=== PATIENT | male | born 1945 | race Caucasian/White ===

== ENCOUNTER → 2018-03-16 19:00 | Outpatient (REF) | payer MEDICARE, OTHER, SELFPAY | LOC: LAB 19:00 | PROVIDERS: Family Provider Physician Assistant; PCP Physician Assistant; Visit Provider Dermatology | DX: L08.9 Local infection of the skin and subcutaneous tissue, unspecified (principal) | CPT/HCPCS: 87070; 87075; 87077; 87147; 87186; 87205 ==

== ENCOUNTER → 2019-05-29 06:44 | Outpatient (CLI) | payer MEDICARE, OTHER, SELFPAY ==
--- NOTE | 2019-05-29 | DI.RAD.S_ITS ---
PROCEDURE: XR WRIST LT MIN 3V INDICATIONS: LEFT WRIST PAIN TECHNIQUE: 4 views of the wrist were acquired. COMPARISON: None. FINDINGS: Bones: No fractures or dislocations. No suspicious bony lesions. 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 Osteopenia. Scaphoid view: Unremarkable. Soft tissues: No suspicious soft tissue calcifications. IMPRESSION: No fracture or dislocation. Osteopenia. 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 Dictated by: Kalen Gerber M.D. on 05/29/2019 at 10:59 Approved by: Kalen Gerber M.D. on 05/29/2019 at 11:02
--- NOTE | 2019-05-29 | DI.ECHO.S_ITS ---
[facility]---------+ [facility] +---------+ : : [address] : : : : [id number] : : : : Phone: [phone]+ Echocardiogram Report + + :Name: EFREN SUMMERS Study Date: 05/29/2019 Height: 69 in : :[facility] Weight: 156 lb : : Gender: Male BSA: 1.9 m2 : :: 1945 Age: 73 yrs BP: 106/62 mmHg: :Reason For Study: Atrial fibrillation : :Ordering Physician: : :Nasra Noriega Performed By: Yenny Amos : :Referring: NASRA NORIEGA : + + Interpretation Summary The left ventricle is normal in size. The ejection fraction is estimated to be 55-60%. Cannot exclude subtle hypokinesis along the distal anterior and distal anterolateral segments. Consider a nuclear stress test to screen for myocardial ischemia. Diastolic parameters suggest probable normal left ventricular diastolic function and normal filling pressures. The right ventricle is normal in size and function. The right ventricular systolic pressure is estimated to be at least 21 mmHg based on an estimated right atrial pressure of 3 mm Hg. The left atrium is mildly dilated. Right atrial size is normal. There is mild mitral regurgitation. There is no other significant valvular heart disease. The ascending aorta is mildly enlarged. Procedure: A two-dimensional transthoracic echocardiogram with color flow and Doppler was performed. The study quality was technically adequate. There is no prior echocardiogram noted for this patient. The patient was in sinus bradycardia with heart rates between 53-61 bpm during the exam. Left Ventricle: The left ventricle is normal in size. There is normal left ventricular wall thickness. There is no ventricular septal defect visualized. The ejection fraction is estimated to be 55-60%. Cannot exclude subtle hypokinesis along the distal anterior and distal anterolateral segments. Consider a nuclear stress test to screen for myocardial ischemia. Diastolic parameters suggest probable normal left ventricular diastolic function and normal filling pressures. Right Ventricle: The right ventricle is normal in size and function. Atria: The left atrium is mildly dilated. Right atrial size is normal. There is no Doppler evidence for an interatrial shunt. Mitral Valve: The mitral valve is normal in structure and function. There is mild mitral regurgitation. Aortic Valve: The aortic valve is normal in structure and function. No aortic regurgitation is present. Tricuspid Valve: The tricuspid valve is normal in structure and function. There is trace tricuspid regurgitation. The right ventricular systolic pressure is estimated to be at least 21 mmHg based on an estimated right atrial pressure of 3 mm Hg. Pulmonic Valve: The pulmonic valve is normal in structure and function. There is a trace or physiologic amount of pulmonic regurgitation. There is no other significant valvular heart disease. Great Vessels: The aortic root is normal size. The ascending aorta is mildly enlarged. The aortic arch is normal in size. The pulmonary artery is normal size. The IVC is of normal diameter and collapses greater than 50% with a sniff. This suggests a low right atrial pressure of 3 mm Hg. Pericardium/ Pleura There is no pericardial effusion. MMode/2D Measurements & Calculations LVIDd: 4.4 cm LVOT diam: 2.1 cm LVIDs: 2.7 cm Ao root diam: 3.5 cm FS: 38.8 % Aortic Jxn: 2.9 cm EPSS: 0.35 cm asc Aorta Diam: 3.5 cm IVSd: 0.71 cm Ao Arch Diam (Prox Trans): 2.8 cm LVPWd: 0.86 cm LV villegas. diameter/BSA (cm/m^2): 2.4 LV sys. diameter/BSA (cm/m^2): 1.5 LA A2 area: 21.6 cm2 RA long axis: 5.2 cm LA A4 area: 20.8 cm2 RA area: 15.6 cm2 LA length (vol): 5.5 cm RA vol: 39.9 ml LA vol: 69.6 ml RA : 21.4 ml/m2 LA vol index: 37.4 ml/m2 IVC diam: 2.0 cm RVD1 (basal): 3.2 cm RVD2 (mid): 2.1 cm TAPSE: 2.9 cm Doppler Measurements & Calculations Ao V2 max: 120.5 cm/sec LVOT Max Demetrio: 96.8 cm/sec Ao V2 mean: 77.1 cm/sec LV V1 max P.7 mmHg Ao max P.8 mmHg LV V1 VTI: 20.6 cm Ao mean P.8 mmHg SHARONA(I,D): 2.7 cm2 Ao V2 VTI: 26.1 cm SHARONA(V,D): 2.7 cm2 sev ratio: 0.79 SHARONA indexed to BSA (cm^2/m^2): 1.4 MV E max demetrio: 76.8 cm/sec TR max demetrio: 212.7 cm/sec MV A max demetrio: 80.5 cm/sec TR max P.1 mmHg MV E/A: 0.95 PA V2 max: 68.9 cm/sec Med Peak E' Demetrio: 7.3 cm/sec PA V2 mean: 45.3 cm/sec E/E' med: 10.6 PA mean P.96 mmHg Lat Peak E' Demetrio: 8.9 cm/sec PA Accel Time: 0.16 sec E/E' lat: 8.6 E/e' average: 9.6 MV dec time: 0.16 sec MV P1/2t: 46.5 msec MV P1/2t max demetrio: 76.8 cm/sec SV(LVOT): 69.8 ml MVA(P1/2t): 4.7 cm2 Reading Physician:03:22 PM
== END ==
PROVIDERS: PCP Internal Medicine; Visit Provider Internal Medicine
DX: I34.0 Nonrheumatic mitral (valve) insufficiency (principal); I48.91 Unspecified atrial fibrillation; I77.89 Other specified disorders of arteries and arterioles; M25.532 Pain in left wrist; M85.832 Other specified disorders of bone density and structure, left forearm
CPT/HCPCS: 73110; 93306

== ENCOUNTER → 2019-06-09 12:32 | Outpatient (CLI) | payer MEDICARE, OTHER, SELFPAY ==
--- NOTE | 2019-06-09 | DI.MRI.S_ITS ---
PROCEDURE: MR WRIST LT WO CON INDICATIONS: Pain in left wrist TECHNIQUE: Noncontrast coronal proton density fast spin echo and T2 fast spin echo with fat saturation; coronal 3-D gradient echo, axial T1 spin echo and T2 fast spin echo with fat saturation, sagittal T1 spin echo through the wrist. COMPARISON: [facility], CR, XR WRIST LT MIN 3V, 05/29/2019, 8:35. FINDINGS: Image quality: Excellent. Bones and cartilage: The carpal bones are normally aligned. Subtle edema involving proximal lunate with geographic area of sclerosis in proximal lunate. Subtle subcortical fracture versus focal area of osteonecrosis is suspected. Small cystic area versus erosion involving proximal scaphoid, lunate and triquetrum is seen, subtle erosion secondary to inflammatory arthropathy cannot be excluded. No displaced fracture or dislocation. Osteoarthritic changes are noted throughout wrist joints more prominent at first CMC joint. Carpal ligaments: There is suggestion of sprain/partial thickness tear involving possible component of scapholunate ligament. No full-thickness scapholunate ligament rupture lunotriquetral ligament is intact. In the absence of intra-articular contrast, the extrinsic carpal ligaments are not well identified. On sagittal images, the pisohamate ligament appears intact. Triangular fibrocartilage complex: There is suggestion of granular fibrocartilage tear near its radial and ulnar insertions. The adjacent meniscal homolog appears normal in the absence of intra-articular contrast. The extensor carpi ulnaris tendon is thickened with moderate fluid distention of the tendon sheath at the level of radial head and internal debris within tendon sheath adjacent to the tendon concerning for significant tenosynovitis. Tendons and soft tissues: Diffuse soft tissue swelling and edema surround the wrist is seen particularly over dorsal aspect. The carpal tunnel structures appear normal, including the median nerve. The ulnar nerve appears normal within Guyon's canal. Rest of the extensor tendon compartments demonstrate normal morphology, without pathologic tendon sheath fluid. No soft tissue ganglion cysts. IMPRESSION: 1. Subtle edema involving proximal lunate with geographic area of sclerosis. Findings may indicate a subtle subcortical fracture versus avascular necrosis in this area. 2. Osteoarthritic changes throughout wrist joints with cystic areas scattered in carpal bones. Erosive changes secondary to inflammatory arthropathy cannot be excluded. 3. Diffuse soft tissue swelling and edema surrounding wrist. Moderate tenosynovitis involving extensor carpi ulnaris tendon at the level of ulnar styloid with erosion of ulna styloid. 4. Suggestion of sprain/partial thickness tear involving scapholunate ligament. The lunotriquetral ligament is intact. 5. Suggestion of triangular fibrocartilage tear near its radial and ulnar insertions. Dictated by: Gerardo Harper M.D. on 06/11/2019 at 8:42 Approved by: Gerardo Harper M.D. on 06/11/2019 at 9:29
== END ==
PROVIDERS: PCP Internal Medicine; Visit Provider Internal Medicine
DX: M25.532 Pain in left wrist (principal); M65.832 Other synovitis and tenosynovitis, left forearm; M25.432 Effusion, left wrist
CPT/HCPCS: 73221

== ENCOUNTER → 2019-07-05 14:34 | Outpatient (CLI) | payer MEDICARE, OTHER, SELFPAY ==
--- NOTE | 2019-07-05 | DI.NM.S_ITS ---
PROCEDURE: NM SHARI PERF SPECT REST & STR Rest and exercise myocardial perfusion SPECT with gated imaging and ejection fraction RADIOPHARMACEUTICAL: 26.6 mCi Tc-99m sestamibi IV at rest and 25.9 mCi Tc-99m sestamibi IV at peak exercise. A two day-protocol was performed. INDICATIONS: UNSPECIFIED ATRIAL FIB. TECHNIQUE: Radiopharmaceutical was injected at peak stress test, and also at rest. SPECT images were obtained. SPECT myocardial perfusion images were displayed in short axis, horizontal long axis, and vertical long axis views. Gated images were reviewed using [facility]. COMPARISON: None. CARDIAC STRESS: A standard Hussein treadmill exercise tolerance test was performed by the patient under the supervision of an attending staff. The patient exercised for 8 minutes and 28 seconds reaching 10.1 METs; functional aerobic impairment (MICAELA) is -34%. Hemodynamic data: There is normal blood pressure and heart rate response to exercise stress. Patient achieved 105% of maximum predicted heart rate at peak exercise. Symptoms: Patient denied chest pain during exercise. EKG: No diagnostic EKG changes of ischemia; occasional PACs and PVCs present. FINDINGS: Raw data: There is good myocardial labeling by radiotracer. No significant motion artifacts. Ezud-yz-guofl ratio is 0.35 (normal is less than 0.38 for sestamibi tracer, and less than 0.50 for thallium tracer). Left ventricle function: Gated images demonstrate normal left ventricle wall thickening. No segmental wall motion abnormality. No transient ischemic dilation; TID is 0.94 (normal less than 1.3). The left ventricle resting end-diastolic volume is 98 mL. Left ventricle stress ejection fraction is 71%; normal values are above 45%. Myocardial perfusion: There is normal distribution of activity in the left and right ventricular myocardium. No fixed or reversible perfusion defects. IMPRESSION: Low risk, normal treadmill nuclear stress test. 1) No perfusion evidence of ischemia or infarction. 2) Normal left ventricular size, wall motion, and systolic function (EF post stress 71%). 3) No ECG evidence of ischemia. 4) No angina during the study. 5) Good exercise capacity (10.1 METs, MICAELA -34%). Target heart rate achieved. Appropriate BP response to exercise. 6) No prior nuclear stress test available for comparison. Dictated by: Jovany Flowers MD on 07/06/2019 at 16:45 Approved by: Jovany Flowers MD on 07/06/2019 at 16:48
== END ==
PROVIDERS: PCP Internal Medicine; Visit Provider Internal Medicine
DX: I48.91 Unspecified atrial fibrillation (principal)
CPT/HCPCS: 78452; 93016; 93017; 93018; A9502

== ENCOUNTER → 2020-05-26 19:10 | Outpatient (ROUT) | payer MEDICARE, OTHER, SELFPAY ==
[2020-05-26 20:02] LABS: Add Manual Diff / Slide Review NO; Basophils Absolute Auto 0 /uL (0-100); Basophils Percent Auto 0.7 % (0-2); Eosinophils Absolute Auto 100 /uL (0-450); Eosinophils Percent Auto 3.2 % (2-4); Hematocrit 39.6 % (41-53); Hemoglobin 13.4 g/dL (13.5-17.5); Lymphocytes Absolute Auto 1300 /uL (1100-4500); Lymphocytes Percent Auto 32.7 % (25-40); Mean Corpuscular HGB Conc 33.8 % (30-36); Mean Corpuscular Hemoglobin 32.5 PG (26-34); Mean Corpuscular Volume 96.3 fL (80-100); Monocytes Absolute Auto 300 /uL (0-900); Monocytes Percent Auto 7.1 % (3-14); Neutrophils Absolute Auto 2300 /uL (1500-7000); Neutrophils Percent Auto 56.3 % (50-75); Platelet Count 254 X10^3/uL (150-400); Red Blood Cell Count 4.12 X10^6/uL (4.5-5.9); Red Cell Distribution Width 13.2 % (11.6-14.8)
[2020-05-26 20:14] LABS: Aspartate Aminotransferase 29 IU/L (17-59); BUN Creatinine Ratio 24.4 (6-22); Blood Urea Nitrogen 21 mg/dL (9-20); Calcium 9.3 mg/dL (8.4-10.2); Carbon Dioxide 29 mmol/L (22-32); Chloride 104 mmol/L (98-107); Cholesterol 195 mg/dL (140-199); Estimated Glomerular Filt Rate > 60.0 mL/min (>60); Glucose 94 mg/dL (80-110); HDL Cholesterol 75 mg/dL (40-60); HEMOLYSIS < 15 (0-50); LDL Cholesterol Calculated 94 mg/dL (<100); Potassium 4.4 mmol/L (3.4-5.1); Sodium 137 mmol/L (137-145); Triglycerides 130 mg/dL (35-150)
[2020-05-26 20:43] LABS: Prostate Specific Antigen 2.04 ng/mL (0.10-4.00)
== END ==
PROVIDERS: PCP Internal Medicine; Visit Provider Internal Medicine
DX: I48.0 Paroxysmal atrial fibrillation (principal); E78.2 Mixed hyperlipidemia
CPT/HCPCS: 80048; 80061; 84153; 84450; 85025

== ENCOUNTER 2022-11-01 09:15 | Day surgery (SDC) | payer MEDICARE, OTHER, SELFPAY ==
[2022-11-01] VITALS (7 sets, daily range): BP systolic 82–156; BP diastolic 41–101; PULSE 53–63; RESP 12–18; TEMP 36.2–36.4; O2SAT 95–98; BMI 27.4
--- NOTE | 2022-11-01 | PATH_ITS ---
[facility] Accession Number: [id number] No. of containers..05 Tissue . 01 Material submitted: . PART A: gastrointestinal site - GASTRIC BODY POLYP PART B: gastrointestinal site - GASTRIC FUNDUS POLYP PART C: esophagus - MID ESOPHAGUS BIOPSY PART D: colon - CECAL POLYP PART E: colon - ASCENDING COLON POLYP . 01 Diagnosis: A. Stomach, Body Polyp, Biopsy: Body-type mucosa with a few dilated glands, consistent with fundic gland polyp. No evidence of Helicobacter on H/E stain. Negative for intestinal metaplasia. Negative for dysplasia and malignancy. . B. Stomach, Fundus Polyp, Biopsy: Benign gastric xanthoma. No evidence of Helicobacter on H/E stain. Negative for intestinal metaplasia. Negative for dysplasia and malignancy. . C. Mid Esophagus, Biopsy: Squamous epithelium with no diagnostic abnormality. Intraepithelial eosinophils are not increased. Negative for dysplasia and malignancy. . D. Cecum, Polyp, Biopsy: Tubular adenoma. . E. Ascending Colon, Polyp, Biopsy: Serrated lesion, favor sessile serrated adenoma. [facility] 11/04/2022 1722 Local . 01 Electronically signed: . Kymberly Adams MD, Pathologist NPI- [id number] . 01 Gross description: . Part A: GASTRIC BODY POLYP: Received in formalin are 3 fragment(s) of diaz, soft tissue measuring 0.1 x 0.1 x 0.1 cm to 0.2 x 0.2 x 0.2 cm submitted entirely in 1 cassette(s) Part B: GASTRIC FUNDUS POLYP: Received in formalin is 1 fragment(s) of diaz, soft tissue measuring 0.3 x 0.2 x 0.2 cm submitted entirely in 1 cassette(s) Part C: MID ESOPHAGUS BIOPSY: Received in formalin are 3 fragment(s) of diaz, soft tissue measuring 0.1 x 0.1 x 0.1 cm to 0.2 x 0.2 x 0.1 cm submitted entirely in 1 cassette(s) Part D: CECAL POLYP: Received in formalin is 1 fragment(s) of diaz, soft tissue measuring 0.6 x 0.4 x 0.4 cm submitted entirely in 1 cassette(s) Part E: ASCENDING COLON POLYP: Received in formalin is 1 fragment(s) of diaz, soft tissue measuring 0.4 x 0.4 x 0.2 cm submitted entirely in 1 cassette(s) /[facility] 11/02/2022 1927 Local . 01 Microscopic: . B. Immunohistochemical stains were performed to characterize cells of interest. All control stains showed appropriate reactivity. . RESULTS: CD68: Positive in the cells of interest. MARBELLA: Negative in the cells of interest. . INTERPRETATION: The cells of interest in the lamina propria express CD68 and do not express MARBELLA, consistent with benign histiocytes/xanthoma cells. . * This test was developed and its performance characteristics determined by [facility]. It has not been cleared or approved by the U.S. Food and Drug Administration. The FDA has determined that such clearance or approval is not necessary. This test is used for clinical purposes. It should not be regarded as investigational or for research. . 01 Pathologist provided ICD-10: D12.0, D12.2, R13.10, K31.7 . 01 CPT . 056712, 664451, 014719, 171054, 811576, P48930, E01552 Specimen Comment: A courtesy copy of this report has been sent to [phone] Performed at: 01 [facility] Cytology [address] [place] [address], [place], [place] [id number] MD Manav Pulido MD Phone: [phone]
--- NOTE | 2022-11-01 10:26 | P.HP_ITS ---
History of Present Illness History of Present Illness Date Patient Seen: 11/01/22 Time Patient Seen: 10:26 Chief complaint: EGD/Colonoscopy Narrative: I reviewed my recent office note. No significant changes. [facility] Medical History BPH w urinary obs/LUTS Chicken pox (~1951) Chronic anticoagulation Dysphagia Erectile dysfunction Foot pain (~2011) Hearing loss History of colonic polyps Mixed hyperlipidemia Obstructive sleep apnea Paroxysmal atrial fibrillation (~2009) Tinnitus (~1979) Surgical History History of carpal tunnel release Family History Father Stroke Mother Cancer Grandmother Cancer Social History Smoking Status: Never smoker Meds Home Medications and Allergies Home Medications Medication Instructions Recorded Confirmed Type cholecalciferol (vitamin D3) 125 125 mcg PO DAILY 09/17/22 09/17/22 History mcg (5,000 unit) capsule tamsulosin 0.4 mg capsule (Flomax) 0.4 mg PO BEDTIME 09/17/22 09/17/22 History warfarin 10 mg tablet 5 mg PO DAILY 09/17/22 09/17/22 History Allergies Allergy/AdvReac Type Severity Reaction Status Date / Time INGREDIENT: NDA - NO KNOWN Allergy Unknown Uncoded 09/17/22 14:06 DRUG ALLERGIES Review of Systems Review of Systems ROS: Yes All systems reviewed with the patient and are negative except as otherwise documented Exam Const General: cooperative HENMT Head: normal to inspection Eyes General: appearance normal, both eyes and all related structures Neck Neck: normal visual inspection Chest Chest: normal inspection of the chest Resp Effort & Inspection: normal respiratory effort Cardio Rate: regular rate GI Inspection: normal to inspection Skin General: no rashes or lesions noted Neuro General: patient alert and patient awake Extrem General: normal to inspection and no pedal edema Psych Appearance: grossly normal Assessment & Plan Assessment & Plan narrative: 77-year-old male with dysphagia. He is a personal history of colon polyps. EGD and colonoscopy are pursued today.
--- NOTE | 2022-11-01 10:28 | PM.PREOP ---
Pre-operative Note Interval Note History & Physical reviewed/Exam performed by Physician: Yes Changes to H&P: No ASA Class (for procedural sedation): II
[2022-11-01] MEDS: LACTATED RINGERS 1,000 ML 100 ML IV (10:52)
--- NOTE | 2022-11-01 11:50 | PM.OP.EC ---
Operative Date/Time/Diagnoses Date of procedure: 11/01/22 Time of procedure: 11:51 Pre-op diagnosis: Dysphagia and personal history of colon polyps Post-op diagnosis: same Procedure & Clinicians Study performed: EGD with biopsies and colonoscopy with hot and cold snare polypectomy Same procedure as scheduled: Yes Indications: Dysphagia and personal history of colon polyps Surgeon: Herb Patel Procedure Notes SCOAP/Timeout: Done Procedure in detail: After the risks and benefits were explained, written and verbal informed consent was obtained. The patient was brought into the procedure room and placed into the left lateral decubitus position. Please see anesthesia notes for sedation details. The scope was introduced into the mouth through the bite block and advanced under direct visualization to the 2nd portion of the duodenum. The scope was slowly withdrawn carefully examining the mucosa for any defects or lesions. Retroflexed views were accomplished in the stomach. The stomach was decompressed, the scope was then removed from the patient who tolerated the procedure well. The patient was then turned around. A digital rectal examination was accomplished. The scope was introduced into the rectum and advanced to the cecum as identified by the appendiceal orifice and ileocecal valve. The scope was slowly withdrawn to carefully examine the mucosa for any defects or lesions. Multiple direct views were made through the dentate line for exclusion of pathology. The colon was decompressed. The scope was removed from the patient who tolerated the procedure well. Pediatric colonoscope Bowel prep adequate Scope withdrawal time: 10 minutes Sedation minutes: 37 Complications: none Impression: 1. Duodenum: This was visually unremarkable from the bulb through to the 2nd portion. 2. Stomach: No gastric outlet obstruction no ulcers no mass lesions. A couple of small diminutive polyps were removed from the gastric body. There was a separate white appearing 4-5 mm polyp in the fundus region that was removed separately with cold forceps. No additional gastric pathology was appreciated. A small sliding hiatal hernia was noted on retroflexed views. 3. Esophagus: The squamocolumnar junction correlated with the top of the gastric folds. GEJ was at 40 cm from the incisors. No acute erosive changes no strictures no mass lesions. The patient had a slightly tortuous esophagus. Midesophageal biopsies were acquired for exclusion of eosinophilic esophagitis. 4. Colon: The patient had diverticulosis throughout the sigmoid. In the cecum there was an approximately 6 mm polyp removed with cold snare. In the ascending colon there was an approximately 7 mm sessile polyp removed with hot snare. No additional pathology was appreciated throughout. Endoscopic diagnosis 1. Subtle small sliding hiatal hernia 2. Gastric polyps 3. Colon polyps 4. Diverticulosis Post-procedure Plan for aftercare: 1. Await histopathology. 2. Surveillance upper endoscopy will be considered following polyp review. 3. If there is no evidence of eosinophilic infiltration, consider an empiric course of anti-reflux therapy. 4. Repeat colonoscopy timing will be contingent on pathology results. 5. Okay to resume Coumadin starting tomorrow. Disposition: PACU
== END 2022-11-01 12:48 | disposition home or self-care (01) ==
PROVIDERS: PCP Internal Medicine; Referring Provider Internal Medicine Gastroenterology; Visit Provider Internal Medicine Gastroenterology
PROC: 0DJ08ZZ Inspection of Upper Intestinal Tract, Via Natural or Artificial Opening Endoscopic (ICD-10-PCS; CPT 43235; principal; 2022-11-01 10:30)
PROC: 0DJD8ZZ Inspection of Lower Intestinal Tract, Via Natural or Artificial Opening Endoscopic (ICD-10-PCS; CPT 45378; 2022-11-01 10:30)
DX: Z12.11 Encounter for screening for malignant neoplasm of colon (principal); Z86.010 Personal history of colon polyps; R13.10 Dysphagia, unspecified; K57.30 Diverticulosis of large intestine without perforation or abscess without bleeding; K31.7 Polyp of stomach and duodenum; K44.9 Diaphragmatic hernia without obstruction or gangrene; D12.0 Benign neoplasm of cecum; D12.2 Benign neoplasm of ascending colon; K31.89 Other diseases of stomach and duodenum
CPT/HCPCS: 45385; 43239; J2704

== ENCOUNTER 2023-01-26 07:27 | Day surgery (SDC) | payer MEDICARE, OTHER, SELFPAY ==
[2023-01-26 07:48] VITALS: BMI 24.3
--- NOTE | 2023-01-26 07:48 | PM.HP.1 ---
History of Present Illness History of Present Illness Date Patient Seen: 01/26/23 Time Patient Seen: 08:07 Chief complaint: EGD Narrative: Here today for EGD. Unfortunately his Coumadin was not held. No problems with dysphagia. [facility] Medical History BPH w urinary obs/LUTS Chicken pox (~1951) Chronic anticoagulation Dysphagia Erectile dysfunction Foot pain (~2011) Hearing loss History of colonic polyps Mixed hyperlipidemia Obstructive sleep apnea Paroxysmal atrial fibrillation (~2009) Tinnitus (~1979) Surgical History History of carpal tunnel release Family History Father Stroke Mother Cancer Grandmother Cancer Social History household members: spouse and none Smoking Status: Never smoker alcohol intake: current Meds Home Medications and Allergies Home Medications Medication Instructions Recorded Confirmed Type cholecalciferol (vitamin D3) 125 125 mcg PO DAILY 09/17/22 01/26/23 History mcg (5,000 unit) capsule tamsulosin 0.4 mg capsule (Flomax) 0.4 mg PO BEDTIME 09/17/22 01/26/23 History warfarin 10 mg tablet 5 mg PO .COMPLEX #90 tabs 12/30/22 01/26/23 Rx Allergies Allergy/AdvReac Type Severity Reaction Status Date / Time No Known Drug Allergies Allergy Verified 01/26/23 07:46 Review of Systems Review of Systems ROS: Yes All systems reviewed with the patient and are negative except as otherwise documented Exam Const General: cooperative HENMT Head: normal to inspection Eyes General: appearance normal, both eyes and all related structures Neck Neck: normal visual inspection Chest Chest: normal inspection of the chest Resp Effort & Inspection: normal respiratory effort Cardio Rate: regular rate GI Inspection: normal to inspection Skin General: no rashes or lesions noted Neuro General: patient alert and patient awake Extrem General: normal to inspection and no pedal edema Psych Appearance: grossly normal Assessment & Plan Assessment & Plan narrative: 77-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 He is indicated for early surveillance to ensure all of the xanthoma has been removed and sample any other gastric polyps with any concerning visual features. We will reschedule him for EGD as soon as possible off Coumadin x5 days.
== END 2023-01-26 07:30 | disposition home or self-care (01) ==
LOC: ENDO 07:28
PROVIDERS: PCP Internal Medicine; Referring Provider Internal Medicine Gastroenterology; Visit Provider Internal Medicine Gastroenterology
DX: R13.10 Dysphagia, unspecified (principal); Z53.09 Procedure and treatment not carried out because of other contraindication
CPT/HCPCS: J2704

== ENCOUNTER 2023-02-02 13:30 | Day surgery (SDC) | payer MEDICARE, OTHER, SELFPAY ==
--- NOTE | 2023-02-02 | PATH_ITS ---
[facility] Accession Number: [id number] No. of containers..01 Tissue . 01 Material submitted: . gastrointestinal site - GASTRIC POLYP . 01 Clinical history: . R/O XANTHOMA . 01 Diagnosis: Gastric Polyp, Biopsy: Gastric body mucosa with minimal chronic inflammation and reactive foveolar hyperplasia. Negative for Helicobacter organisms by immunohistochemistry. No lipid-laden macrophages identified. Negative for intestinal metaplasia. Negative for dysplasia or malignancy. [facility] 02/10/2023 1414 Local . 01 Electronically signed: . Fredo Mcadams MD, PhD, Pathologist NPI- [id number] . 01 Gross description: . GASTRIC POLYP: Received in formalin is 2 fragment(s) of diaz, soft tissue measuring 0.4 x 0.2 x 0.2 cm to 0.1 x 0.1 x 0.1 cm submitted entirely in 1 cassette(s) /[facility] 02/08/2023 1123 Local . 01 Microscopic: . An immunohistochemical stain was performed to evaluate for Helicobacter organisms and is negative. The control stain showed appropriate reactivity. . * This test was developed and its performance characteristics determined by [facility]. It has not been cleared or approved by the U.S. Food and Drug Administration. The FDA has determined that such clearance or approval is not necessary. This test is used for clinical purposes. It should not be regarded as investigational or for research. . 01 Pathologist provided ICD-10: K31.7 . 01 CPT . 913042, D23213 Specimen Comment: A courtesy copy of this report has been sent to [phone] Performed at: 01 [facility] Cytology [address] [place] [address] [address], [place], [place] [id number] MD Manav Pulido MD Phone: [phone]
[2023-02-02 13:50] VITALS: BP 111/68; PULSE 52; RESP 16; TEMP 36.4; O2SAT 98; BMI 24.3
[2023-02-02] MEDS: LACTATED RINGERS 1,000 ML 125 ML IV (13:59)
--- NOTE | 2023-02-02 15:21 | PM.HP.1 ---
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 Need for repeat EGD to evaluate for any residual and remove if necessary. [facility] Medical History BPH w urinary obs/LUTS Chicken pox (~1951) Chronic anticoagulation Dysphagia Erectile dysfunction Foot pain (~2011) Hearing loss History of colonic polyps Mixed hyperlipidemia Obstructive sleep apnea Paroxysmal atrial fibrillation (~2009) Tinnitus (~1979) Surgical History History of carpal tunnel release Family History Father Stroke Mother Cancer Grandmother Cancer Social History household members: spouse and none Smoking Status: Never smoker alcohol intake: never Meds Home Medications and Allergies Home Medications Medication Instructions Recorded Confirmed Type cholecalciferol (vitamin D3) 125 125 mcg PO DAILY 09/17/22 02/02/23 History mcg (5,000 unit) capsule tamsulosin 0.4 mg capsule (Flomax) 0.4 mg PO BEDTIME 09/17/22 02/02/23 History warfarin 10 mg tablet 5 mg PO .COMPLEX #90 tabs 12/30/22 02/02/23 Rx Allergies Allergy/AdvReac Type Severity Reaction Status Date / Time No Known Drug Allergies Allergy Verified 01/26/23 07:46 Exam Vital Signs (past 8 hours): - 02/02/23 13:50 Temperature 97.6 F Pulse Rate 52 L Respiratory Rate 16 Blood Pressure 111/68 Pulse Oximetry 98 Narrative Exam Narrative: Oropharynx free of lesions Chest clear to auscultation percussion Cardiac exam reveals no S3 or murmur Assessment & Plan Assessment & Plan narrative: 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 Risks, benefits, alternatives have been explained.
--- NOTE | 2023-02-02 15:22 | PM.OP.EGD ---
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 Need to re-evaluate the area to ensure no residual and remove if necessary Surgeon: Jac Crawford Procedure Notes Procedure in detail: After informed consent was obtained the patient placed in left lateral decubitus position. The video upper scope was placed into the oropharynx and with the patient's help swallowed into the esophagus. The esophagus stomach and duodenum were carefully examined. On withdrawal retroflexed view the GE junction was performed. The scope was removed. The patient tolerated procedure well. Blood loss none Complications none Sedation mac Findings 1. Normal esophagus 2. Generally normally appearing stomach. There was however 1 small 4 mm polyp just distal to the GE junction seen best on retroflexed view. This was more white in color than the surrounding mucosa. Using a biopsy forceps the polyp was removed in 2 bites. An area just to the side of the lesion was then marked with a 0.5 cc injection of spot. 3. Normal duodenal bulb and sweep Will be in touch regarding biopsies and appropriate follow-up interval.
[2023-02-02 15:39] VITALS: BP 107/70; PULSE 56; RESP 12; TEMP 36.2; O2SAT 94
[2023-02-02 15:44] VITALS: BP 104/67; PULSE 58; RESP 12; TEMP 36.2; O2SAT 95
[2023-02-02 15:51] VITALS: BP 108/70; PULSE 52; RESP 13; TEMP 36.3; O2SAT 97
[2023-02-02 16:03] VITALS: BP 104/74; PULSE 50; RESP 14; TEMP 36.3; O2SAT 100
== END 2023-02-02 16:15 | disposition home or self-care (01) ==
PROVIDERS: PCP Internal Medicine; Referring Provider Internal Medicine Gastroenterology; Visit Provider Internal Medicine Gastroenterology
PROC: 0DJ08ZZ Inspection of Upper Intestinal Tract, Via Natural or Artificial Opening Endoscopic (ICD-10-PCS; CPT 43235; principal; 2023-02-02 14:30)
DX: K31.9 Disease of stomach and duodenum, unspecified (principal); E75.5 Other lipid storage disorders
CPT/HCPCS: 43239

== ENCOUNTER → 2023-05-25 09:17 | Outpatient (CLI) | payer MEDICARE, OTHER, SELFPAY ==
--- NOTE | 2023-05-25 | DI.RAD.S_ITS ---
PROCEDURE: XR CLAVICLE RT INDICATIONS: Rt proximal clavicular bulge TECHNIQUE: 2 views of the clavicle were acquired. COMPARISON: None. FINDINGS: Bones: No fractures or dislocations. No suspicious bony lesions. Soft tissues: No suspicious soft tissue calcifications. IMPRESSION: No suspicious bony lesions where palpated. Dictated by: Tracy Gama M.D. on 05/25/2023 at 12:28 Approved by: Tracy Gama M.D. on 05/25/2023 at 12:28
--- NOTE | 2023-05-25 09:19 | DI.RAD.S_ITS ---
PROCEDURE: XR CLAVICLE LT INDICATIONS: hardened bulge at right proximal end near SC joint x 2 mos TECHNIQUE: 2 views of the clavicle were acquired. COMPARISON: None. FINDINGS: Bones: No fractures or dislocations. No suspicious bony lesions. Soft tissues: No suspicious soft tissue calcifications. IMPRESSION: No suspicious bony lesions where palpated. Dictated by: Tracy Gama M.D. on 05/25/2023 at 12:27 Approved by: Tracy Gama M.D. on 05/25/2023 at 12:28
[2023-05-25 10:39] LABS: Add Manual Diff / Slide Review NO; Basophils Absolute Auto 0 /uL (0-100); Basophils Percent Auto 0.4 % (0-2); Eosinophils Absolute Auto 100 /uL (0-450); Eosinophils Percent Auto 2.5 % (2-4); Hematocrit 40.5 % (41-53); Hemoglobin 13.6 g/dL (13.5-17.5); Lymphocytes Absolute Auto 1300 /uL (1100-4500); Lymphocytes Percent Auto 29.1 % (25-40); Mean Corpuscular HGB Conc 33.5 % (30-36); Mean Corpuscular Hemoglobin 32.1 PG (26-34); Mean Corpuscular Volume 95.8 fL (80-100); Monocytes Absolute Auto 400 /uL (0-900); Neutrophils Absolute Auto 2800 /uL (1500-7000); Platelet Count 262 X10^3/uL (150-400); Red Blood Cell Count 4.23 X10^6/uL (4.5-5.9); White Blood Cell Count 4.6 X10^3/uL (4.5-11.0)
[2023-05-25 10:48] LABS: Appearance Urine UA CLEAR; Bilirubin Urine UA NEGATIVE (NEGATIVE); Color Urine UA YELLOW; Glucose Urine UA NEGATIVE (Negative); Ketones Urine UA NEGATIVE (NEGATIVE); Leukocyte Esterase Urine UA NEGATIVE (NEGATIVE); Nitrite Urine UA NEGATIVE (Negative); Occult Blood Urine UA NEGATIVE (Negative); Protein Urine UA NEGATIVE (Negative); Specific Gravity Urine UA 1.015 (1.000-1.035); Urobilinogen Urine UA 0.2 E.U./dL (0.2)
[2023-05-25 10:56] LABS: Bacteria Urine None Seen; RBC Urine None Seen (0-5/HPF); Squamous Epithelial Cell Urine 0-1 /HPF (0-5/HPF); WBC Urine None Seen (0-5/HPF)
[2023-05-25 10:57] LABS: Culture Indicated Urine Cult Not Indicated
[2023-05-25 11:05] LABS: Alanine Aminotransferase 20 IU/L (<50); Albumin 4.2 g/dL (3.5-5.0); Albumin Globulin Ratio 1.8 (1.0-2.8); Alkaline Phosphatase 41 U/L (38-126); Aspartate Aminotransferase 25 IU/L (17-59); Bilirubin Total 0.5 mg/dL (0.2-1.3); Blood Urea Nitrogen 20 mg/dL (9-20); Calcium 9.8 mg/dL (8.4-10.2); Carbon Dioxide 28 mmol/L (22-32); Chloride 102 mmol/L (98-107); Estimated Glomerular Filt Rate > 60 mL/min (>60); Globulin 2.3 g/dL (1.7-4.1); Glucose 89 mg/dL (80-110); HEMOLYSIS < 15 (0-50); Potassium 4.6 mmol/L (3.4-5.1); Sodium 135 mmol/L (137-145); Total Protein 6.5 g/dL (6.3-8.2)
[2023-05-25 11:28] LABS: Prostate Specific Antigen Scrn 1.81 ng/mL (0.1-4.0)
== END ==
PROVIDERS: PCP Internal Medicine; Referring Provider Physician Assistant; Visit Provider Physician Assistant
DX: M89.319 Hypertrophy of bone, unspecified shoulder (principal); Z12.5 Encounter for screening for malignant neoplasm of prostate
CPT/HCPCS: 36415; 73000; 80053; 81001; 85025; G0103

== ENCOUNTER → 2024-05-28 15:51 | Outpatient (CLI) | payer MEDICARE, OTHER, SELFPAY ==
[2024-05-28 17:17] LABS: Hematocrit 39.1 % (41-53); Mean Corpuscular HGB Conc 33.2 % (30-36); Mean Corpuscular Hemoglobin 32.6 PG (26-34); Mean Corpuscular Volume 98.1 fL (80-100); Platelet Count 263 X10^3/uL (150-400); Red Blood Cell Count 3.98 X10^6/uL (4.5-5.9); Red Cell Distribution Width 13.7 % (11.6-14.8); White Blood Cell Count 4.2 X10^3/uL (4.5-11.0)
[2024-05-28 17:43] LABS: Alanine Aminotransferase 18 IU/L (<50); Albumin Globulin Ratio 1.7 (1.0-2.8); Alkaline Phosphatase 48 U/L (38-126); Aspartate Aminotransferase 27 IU/L (17-59); BUN Creatinine Ratio 21.7 (6-22); Bilirubin Total 0.4 mg/dL (0.2-1.3); Blood Urea Nitrogen 15 mg/dL (9-20); Calcium 9.8 mg/dL (8.4-10.2); Carbon Dioxide 29 mmol/L (22-32); Chloride 103 mmol/L (98-107); Estimated Glomerular Filt Rate > 60 mL/min (>60); Globulin 2.4 g/dL (1.7-4.1); Glucose 85 mg/dL (80-110); HEMOLYSIS < 15 (0-50); Potassium 4.6 mmol/L (3.4-5.1); Sodium 135 mmol/L (137-145); Total Protein 6.4 g/dL (6.3-8.2)
== END ==
PROVIDERS: PCP Internal Medicine; Referring Provider Internal Medicine; Visit Provider Internal Medicine
DX: I48.0 Paroxysmal atrial fibrillation (principal); Z79.01 Long term (current) use of anticoagulants; N40.1 Benign prostatic hyperplasia with lower urinary tract symptoms; N13.8 Other obstructive and reflux uropathy; E78.2 Mixed hyperlipidemia; N52.9 Male erectile dysfunction, unspecified; F41.1 Generalized anxiety disorder; Z86.0100 Personal history of colon polyps, unspecified
CPT/HCPCS: 36415; 80053; 85027

== ENCOUNTER 2024-08-14 06:35 | Day surgery (SDC) | payer MEDICARE, OTHER, SELFPAY ==
[2024-08-14] VITALS (7 sets, daily range): BP systolic 108–126; BP diastolic 56–82; PULSE 50–69; RESP 12–18; TEMP 35.8–36.4; O2SAT 96–100; BMI 25.2
--- NOTE | 2024-08-14 | PATH_ITS ---
[facility] Accession Number: [id number] No. of containers..01 Tissue . 01 Material submitted: . prostate - PROSTATE CHIPS . 01 Diagnosis: PROSTATE CHIPS (WEIGHT 5 GRAMS): Prosatic tissue with chronic prostatitis, glandular and stromal hyperplasia; negative for epithelial atypia or malignancy. MRV 08/16/2024 1245 Local . 01 Electronically signed: . Rosie Bryant MD, Pathologist NPI- [id number] . 01 Gross description: . Received in formalin with two patient identifiers and prostate chips, and consists of a 4.2 x 2.2 x 1.1 cm, 5 gram aggregate of diaz-brown rubbery focally cauterized morcellated tissue admixed with clotted blood, which is entirely submitted in cassettes A1 and A2. ([id number]) /MRV 08/15/2024 1900 Local . 01 Pathologist provided ICD-10: N40.1 . 01 CPT . 801707 Specimen Comment: A courtesy copy of this report has been sent to [phone] Performed at: [address] [id number] MD Manav Pulido MD Phone: [phone]
[2024-08-14] MEDS: ACETAMINOPHEN 325 MG TABLET 975 MG PO (06:55)
[2024-08-14] MEDS: LACTATED RINGERS 1,000 ML 21 ML IV (07:12)
--- NOTE | 2024-08-14 07:35 | PM.PREOP ---
Pre-operative Note COVID-19 COVID-19 status: Not tested Interval Note History & Physical reviewed/Exam performed by Physician: Yes Changes to H&P: No
--- NOTE | 2024-08-14 07:49 | SUR.PREOP ---
POC INR machine not working. Awaiting INR result from lab.
[2024-08-14 07:57] LABS: INR 1.1 (0.9-1.3); Prothrombin Time 12.7 SECONDS (9.4-12.5)
[2024-08-14] MEDS: CEFAZOLIN 2 GM/100 ML PREMIX 100 ML IV (08:13)
--- NOTE | 2024-08-14 09:27 | P.OP_ITS ---
Procedure & Clinicians Procedure: 1. Aquablation 2. Transrectal ultrasound prostate 3. Trans urethral resection of prostate with fulguration 4. Placement of Mcclure catheter Same procedure as scheduled: Yes Indications: 79-year-old male presented with complaints of BPH with lower urinary tract symptoms failing medical therapy and previous UroLift. Was found to have a 40 g prostate with obstruction PSA of 1.8 an AUA symptom score of 23 and an ideal candidate for Aquablation he presents today for this to relieve his outlet obstructive symptoms and lower urinary tract symptoms. Surgeon: Anjel Gayle Click Yes if Unassisted: Yes Anesthesia Type: General Operative Notes Findings: Findings: Urethral meatus is normal urethra is normal along its length with normal mucosa. The sphincter as well coapted the prostate shows obstructive character including what appeared to be a median lobe. The bladder exhibited some severe trabeculation and cellules. There were 2 UroLift clips which were removed. And at the end of the procedure the ureteral orifices were normal position with clear efflux. The prostatic fossa was widely patent 10 with the bladder full patient had a vigorous stream. The patient had a 22 [place]ian 30 cc hematuria catheter placed without difficulty 45 cc in the balloon. This was connected to gravity drainage. The few prostate chips were forwarded to pathology there were no other abnormalities within the bladder. Total Aquablation time approached 5 minutes divided between 2 passes, the truss to catheter time was just under an hour. Closure Type: not applicable Specimen(s): none sent (Prostate chips) Prosthetic devices, grafts, tissues, transplants, or devices: [address] catheter with 30 cc balloon 45 cc of sterile water in the balloon to gravity drainage and CBI. Estimated Blood Loss (mL): 10 Procedure in detail: Procedure in detail: After informed consent was obtained, the patient was identified and brought to the operating room where he was placed in his supine position on the table. Once there anesthesia was induced and maintained. Showing an adequate level of anesthesia the patient was transitioned to the lithotomy position where he was prepped in a sterile fashion. After prepping, ensuring an adequate level of anesthesia and time-out as well as ensuring administration of antibiotics 60 cc of ultrasound gel was instilled in the patient's rectum followed by the ultrasound probe. The ultrasound probe had been attached to the trust effort which he had been mounted on the articulating arm which was secured to the bed. Once in place the ultrasound probe was aligned and steps were taken to ensure that the prostate was centered in both the transverse and sagittal views. The bladder neck verumontanum as well as the central and transition zones were identified. Again the prostate a previously been measured at 40 g. With the ultrasound probe in place and aligned in the p rostate centered the patient was then draped in a sterile fashion. After the patient was draped the 24 [place]itanian aqua beam handpiece was inserted through the urethra prostate and bladder under direct vision this was done after dilation of the urethral meatus to 28 Mauritanian. As the cystoscope or the Aquablation handpiece was inserted the level of the sphincter, verumontanum and bladder neck for all identified both visually and noted on ultrasound. The Aquablation handpiece once in place was secured to the hand piece articulating arm which he had been secured to the bed. Confirmation was made that the hand piece and truss probe were parallel and colinear. Confirmation was made that the aqua beam nozzle was centered and anterior to the median lobe and bladder neck. The cystoscope was then retracted to the level of the verumontanum and proximal to the external sphincter. That is the cystoscope tip was positioned just proximal to the external sphincter. The alignment of the truss and aqua beam handpiece was once again confirmed. And compression pride with the truss probe. Horizontal alignment of the water jet was then confirmed and performed. The treatment zones were then planned using real-time ultrasound to visualize the contour and zones of the prostate as well as the median lobe. In the transverse view the depth of resection and radial angles were set and defined in the t ransverse view. A plan was then made for the median lobe as far as depth and angles of resection. The nozzle of the Aquablation beam was identified in his position registered with the robotic software. The length of resection was then marked. The contours of resection were then programmed into the software. And confirming that the patient would not move with the median lobe started resection mid prostate in end of resection marked and confirmed the treatment was then started in followed the resection contour. A 2nd pass was deemed necessary and the contours adjusted so ever so slightly and again confirming the patient was not moving the Aquablation treatment was started and follow the contours of resection. Again total Aquablation resection time was right at 5 minutes. With the resection completed the cystoscope was advanced to the tip of the hand piece and the cystoscope and hand piece were looked out under direct vision. The resectoscope continuous flow was then inserted an Ellik evacuator used to evacuate the few clots that were present. The ureteral orifices were identified and with the resection loop in place from approximately the 2 o'clock to 11 o'clock position the bladder neck was resected again after noting the position of the ureteral orifices which were well away from the bladder neck. There was a small flap of tissue left from the median lobe which was resected both under direct vision and ultrasound guidance. Points of bleeding were controlled with the electrocautery. With the hemostasis and good and the bladder neck resected the Ellik evacuator was employed to evacuate the chips and to UroLift clips. As the bladder neck was resected within the bladder that were to expose UroLift clips which were resected quite easily and then evacuated. With this in place the scope was again reinserted points of bleeding were controlled with the electrocautery the position of the ureteral orifices were once again noted they were intact and unharmed with clear efflux. All chips had been removed from the bladder the bladder was left full and the scope removed the patient had a vigorous stream. Then under ultrasound guidance and direct vision the 22 Mauritanian catheter was passed through the urethra prostate and in the bladder the balloon was filled with 45 cc of sterile water and placed to gravity drainage catheter was then connected to CBI again the effluent was ever just ever slightly pink. There were no complications the patient tolerated the procedure well was awakened and transferred to the postanesthesia care unit for recovery. Complications: none Post-operative Condition: stable Disposition: PACU Plan for aftercare: After recovery if the urine remains the color he will be discharged to home if it should change we will bring him in for 23 hour stay.
[2024-08-14] MEDS: OXYBUTYNIN 5 MG TABLET PO (10:01)
[2024-08-14] MEDS: PHENAZOPYRIDINE 100 MG TABLET 200 MG PO (10:01)
--- NOTE | 2024-08-14 12:40 | SUR.PHASEII ---
Hawley draining grade III urine. Patient given discharge instructions and was also show how to irrigate hawley PRN. Sterile saline and syringe provided.
== END 2024-08-14 11:39 | disposition home or self-care (01) ==
PROVIDERS: PCP Internal Medicine; Referring Provider Urology; Visit Provider Urology
PROC: 0VT08ZZ Resection of Prostate, Via Natural or Artificial Opening Endoscopic (ICD-10-PCS; CPT 0421T; principal; 2024-08-14 07:45)
DX: N40.1 Benign prostatic hyperplasia with lower urinary tract symptoms (principal); R33.9 Retention of urine, unspecified; R39.12 Poor urinary stream; R35.1 Nocturia; R39.15 Urgency of urination; N41.1 Chronic prostatitis; N32.89 Other specified disorders of bladder; G47.33 Obstructive sleep apnea (adult) (pediatric); I48.0 Paroxysmal atrial fibrillation; E78.2 Mixed hyperlipidemia; Z79.01 Long term (current) use of anticoagulants
CPT/HCPCS: 0421T; 85610; C2596; J0330; J0690; J2405; J2704; J3010

== ENCOUNTER → 2024-08-27 15:24 | Outpatient (CLI) | payer MEDICARE, OTHER, SELFPAY | PROVIDERS: PCP Internal Medicine; Visit Provider Urology | DX: N40.1 Benign prostatic hyperplasia with lower urinary tract symptoms (principal); N13.8 Other obstructive and reflux uropathy; R33.9 Retention of urine, unspecified; R39.15 Urgency of urination | CPT/HCPCS: 51798; 81002; 87086 ==

== ENCOUNTER → 2024-09-13 08:37 | Outpatient (CLI) | payer MEDICARE, OTHER, SELFPAY | PROVIDERS: PCP Internal Medicine; Visit Provider Urology | DX: N40.1 Benign prostatic hyperplasia with lower urinary tract symptoms (principal); N13.8 Other obstructive and reflux uropathy | CPT/HCPCS: 51798; 81002; 87086 ==

== ENCOUNTER → 2025-02-20 14:47 | Outpatient (CLI) | payer MEDICARE, OTHER, SELFPAY ==
[2025-02-20 15:26] LABS: Hematocrit 38.3 % (41-53); Hemoglobin 13.1 g/dL (13.5-17.5); Mean Corpuscular HGB Conc 34.2 % (30-36); Mean Corpuscular Hemoglobin 33.5 PG (26-34); Mean Corpuscular Volume 97.9 fL (80-100); Platelet Count 226 X10^3/uL (150-400)
[2025-02-20 15:38] LABS: Alanine Aminotransferase 19 IU/L (<50); Albumin 4.7 g/dL (3.5-5.0); Albumin Globulin Ratio 2.1 (1.0-2.8); Alkaline Phosphatase 47 U/L (38-126); Blood Urea Nitrogen 14 mg/dL (9-20); Calcium 9.6 mg/dL (8.4-10.2); Carbon Dioxide 27 mmol/L (22-32); Chloride 102 mmol/L (98-107); Cholesterol 192 mg/dL (140-199); Estimated Glomerular Filt Rate > 60 mL/min (>60); Globulin 2.2 g/dL (1.7-4.1); Glucose 102 mg/dL (70-99); HDL Cholesterol 90 mg/dL (40-60); HEMOLYSIS < 15 (0-50); Magnesium 2.3 mg/dL (1.6-2.3); Potassium 4.3 mmol/L (3.4-5.1); Sodium 134 mmol/L (137-145); Total Protein 6.9 g/dL (6.3-8.2); Triglycerides 97 mg/dL (35-150)
[2025-02-20 15:44] LABS: INR 2.2 (0.9-1.3); Prothrombin Time 24.8 SECONDS (9.4-12.5)
[2025-02-20 16:17] LABS: TSH w/ Reflex to FT4 3.05 uIU/mL (0.47-4.68)
== END ==
LOC: LAB 14:48
PROVIDERS: PCP Internal Medicine; Referring Provider Internal Medicine; Visit Provider Internal Medicine
DX: I48.0 Paroxysmal atrial fibrillation (principal); E78.2 Mixed hyperlipidemia; Z51.81 Encounter for therapeutic drug level monitoring; Z79.01 Long term (current) use of anticoagulants; R79.0 Abnormal level of blood mineral
CPT/HCPCS: 36415; 80053; 80061; 83735; 84443; 85027; 85610

== ENCOUNTER → 2025-02-25 13:47 | Outpatient (CLI) | payer MEDICARE, OTHER, SELFPAY | LOC: CAR 13:48 | PROVIDERS: PCP Internal Medicine; Referring Provider Internal Medicine; Visit Provider Internal Medicine | DX: I48.91 Unspecified atrial fibrillation (principal); I48.92 Unspecified atrial flutter | CPT/HCPCS: 93242 ==

== ENCOUNTER → 2025-05-09 09:17 | Outpatient (CLI) | payer MEDICARE, OTHER, SELFPAY ==
[2025-05-09 10:41] LABS: INR 4.4 (0.9-1.3); Prothrombin Time 48.1 SECONDS (9.4-12.5)
== END ==
PROVIDERS: PCP Internal Medicine; Referring Provider Internal Medicine; Visit Provider Internal Medicine
DX: Z51.81 Encounter for therapeutic drug level monitoring (principal); Z79.01 Long term (current) use of anticoagulants; I48.91 Unspecified atrial fibrillation
CPT/HCPCS: 36415; 85610